=== PATIENT | female | born 1975 | race American Indian/Alaskan Native ===

== ENCOUNTER 2022-03-30 09:59 | Day surgery (SDC) | payer OTHER ==
[~2022-03-30 09:59] MED LIST: SODIUM CHLORIDE 0.9% 1000 ML 1,000 ML IV SCH
--- NOTE | 2022-03-30 11:17 | Anesthesia Day of Surgery ---
Anesthesia Day of Surgery - Day of Surgery Patient Examined: Yes Patient H&P Reviewed: Yes Patient is NPO: Yes
--- NOTE | 2022-03-30 11:17 | Anesthesia Consultation ---
Anesthesia Consult and Med Hx Date of service: 03/30/22 - Airway Anesthetic Teeth Evaluation: Good, Dentures (upper) ROM Head & Neck: Adequate Mental/Hyoid Distance: Adequate Mallampati Class: Class II Intubation Access Assessment: Probably Good - Pre-Operative Health Status ASA Pre-Surgery Classification: ASA3 Proposed Anesthetic Plan: MAC - Pulmonary Hx Smoking: No Hx Respiratory Symptoms: No - Cardiovascular System Hx Hypertension: Yes - Endocrine Hx Renal Disease: No Hx Liver Disease: No Hx Insulin Dependent Diabetes: No Hx Non-Insulin Dependent Diabetes: No Hx Thyroid Disease: No - Additional Comments Anesthesia Medical History Comments: HIV+
[2022-03-30] MEDS ORDERED: propofoL 200 MG/20 ML VIAL IV ONE ×2 (11:59→12:19)
[2022-03-30] MEDS ORDERED: LIDOCAINE MPF (2%) 20 MG/1 ML VIAL 5 ML ONE (12:00)
--- NOTE | 2022-03-30 13:05 | Operative Report ---
Operative Report Operative Report: Colonoscopy (Incomplete to the mid ascending colon) DATE:03/30/2022 ATTENDING PHYSICIAN: Alexandro De La Rosa M.D. FUSION OPERATOR: Alexandro De La Rosa M.D. INDICATIONS: Patient is a 46 y.o. female who presents for evaluation of recurrent rectal bleeding/blood in stool. A colonoscopy is done to evaluate patient so that treatment may be directed based on the findings. CONSENT: Informed consent was obtained after the patient was advised regarding the nature of this procedure, its indications, potential benefits as well as possible complications including but not limited to bleeding, perforation, adverse reaction to medications, infection as well as cardiopulmonary complications. An informed written and verbal consent was then obtained after due opportunity was provided for questions and answers. MONITORING: Patient monitored continuously with pulse oximetry, electrocardiographic recordings as well as automatic blood pressure recordings. Patient remained stable throughout the procedure with no untoward events. PREOPERATIVE ASSESSMENT: Patient was assessed immediately prior to this procedure for capacity to tolerate moderate sedation/monitored anesthesia care. [place] classification is 2. Mallampati class is 2. Hyomental distance is 3. INSTRUMENT: Olympus video colonoscope [id number]. MEDICATIONS: Propofol given intravenously in divided doses. For details, please refer to anesthesia records. DESCRIPTION OF PROCEDURE: Patient was placed in the left lateral decubitus position, after achieving sedation, a digital rectal examination was performed following which the colonoscope was introduced into the anal verge and advanced under direct visualization to the ascending colon. There was incremental stool density with increasing poor visualization of the colon. Therefore, the colonoscope was withdrawn from this area. Color texture mucosa and anatomy of the colon were carefully examined with the colonoscope. The colonoscope was then gently withdrawn with careful inspection of all mucosa surfaces. The patient tolerated the pro cedure well with no complications. After completion of the examination, patient was transferred to the recovery room. The prep written regimen was GoLYTELY and the preparation was poor, with a [place] prep scale score of 3. The following findings were noted. FINDINGS: The cecum was not visualized due to poor colonoscopy preparation with substantial retained stool in the ascending colon to the cecum. Patient did not have any other gross mucosal lesions. On the retroflexed view at the anal verge patient had internal hemorrhoids. IMPRESSION: Incomplete colonoscopy with substantial retained stool. The cecum was not examined. Retained stool with poor colonoscopy preparation Internal Hemorrhoids . PLAN: Schedule repeat colonoscopy in the near term
--- NOTE | 2022-03-30 14:23 | Post Anesthesia Evaluation ---
- Post Anesthesia Evaluation Patient Participated: Yes Airway Patent: Yes Stable Respiratory Function: Yes Nausea/Vomiting: No Temp > 96.8F: Yes Pain Manageable: Yes Adequeate Hydration: Yes Anesthesia Complications: No
[2022-03-30 16:57] VITALS: BP 115/72
== END 2022-03-30 13:00 | disposition home or self-care (01) ==
LOC: GIO 09:59
PROVIDERS: ATTEND Internal Medicine Gastroenterology
DX: K92.1 Melena (principal); K64.8 Other hemorrhoids; I10 Essential (primary) hypertension; Z88.5 Allergy status to narcotic agent; Z88.0 Allergy status to penicillin; Z90.49 Acquired absence of other specified parts of digestive tract; Z90.710 Acquired absence of both cervix and uterus
CPT/HCPCS: 45378; J2704; J7030